=== PATIENT | female | born 1990 | race Caucasian/White ===

== ENCOUNTER 2019-09-09 08:23 | Emergency (ER) | payer OTHER, SELFPAY ==
[2019-09-09 08:34] VITALS: BP 116/65; PULSE 82; RESP 20; TEMP 36.4; O2SAT 100
--- NOTE | 2019-09-09 08:34 | ED.GENADULT ---
HPI - General Adult General Chief complaint: Upper Respiratory Infection Stated complaint: chest cold, sore throat Time Seen by Provider: 09/09/19 08:50 Source: patient Mode of arrival: ambulatory Limitations: no limitations History of Present Illness HPI narrative: 29-year-old female patient presents to the [facility] with complaints of cold symptoms that started yesterday. Patient started with a cough, coughing up some yellow sputum at times, sore throat, stuffy nose and a runny nose that started yesterday. Denies any fevers that she is aware of. Denies any ear pain. Patient states she only has chest pain when she coughs but denies any shortness of breath. Denies any abdominal pain, nausea, vomiting or diarrhea. Denies any or breast-feeding at this time. Patient states that she did get a flu shot this year. Patient states that she was recently diagnosed with cancer in July of this year and is supposed to be starting chemo next week. Patient states that since her symptoms started yesterday they advised her to get checked out make sure that she did not need any antibiotics or antivirals. Related Data Home Medications Medication Instructions Recorded Confirmed alprazolam 09/09/19 dexamethasone 09/09/19 levetiracetam PO 09/09/19 Allergies Allergy/AdvReac Type Severity Reaction Status Date / Time No Known Allergies Allergy Unknown Verified 09/09/19 08:35 Review of Systems Review of Systems: Narrative: CONSTITUTIONAL: Denies fever, chills, or sweats. EYES: Denies visual changes, redness, or discharge. ENT: Positive rhinorrhea, congestion, sore throat, denies otalgia. CARDIOVASCULAR: Denies chest pain, palpitations, or edema. RESPIRATORY: Positive cough, denies dyspnea. GASTROINTESTINAL: Denies abdominal pain, nausea, vomiting, or diarrhea. GENITOURINARY: Denies dysuria or hematuria. SKIN: Denies rash or itching. MUSCULOSKELETAL: Denies back pain, joint pain, or myalgia. NEUROLOGIC: Denies headache, numbness, or weakness. PSYCHIATRIC: Denies anxiety or depression. PMFSH Comments At the time of my signature I agree with nursing past medical history, surgical, social, and family history. There is no relevant family history pertinent to the presenting complaint. Exam Narrative: Exam Narrative: GENERAL: Well-appearing, well-nourished, and in no acute distress. HEAD: Normocephalic, atraumatic. No tenderness noted to frontal maxillary sinuses on palpation. EYES: PERRLA and EOMI. ENT: Nares with erythema and edema noted bilaterally, yellow rhinorrhea, denies epistaxis. Mucous membranes moist. Posterior pharynx with no erythema, tonsil enlargement, exudates or lesions present. Bilateral TMs are clear no erythema or foreign bodies in the canal. NECK: Supple. No lymphadenopathy CHEST: Clear to auscultation. No respiratory distress. HEART: Regular rate and rhythm. No murmur heard. Normal peripheral pulses. ABDOMEN: Soft, nontender, nondistended, normal active bowel sounds. EXTREMITIES: Normal range of motion. No edema. SKIN: Warm, dry, no rash. NEURO: No focal deficits. Alert and oriented x3. Course Reevaluation(s) Reevaluation #1: Notify patient that she is negative today for influenza, strep. Discussed with her this is most likely some type of viral syndrome. Discussed with her that she can continue treating herself symptomatically with [id number] medications. Discussed with her that we will send her swab off to the lab for further testing and if it does come back positive for strep in the next day or 2 weeks she should get a phone call from us putting her on antibiotics. Patient verbalized understanding denies any other questions or concerns at this time. Date: 09/09/19 Time: 08:57 Vital Signs Vital signs: Vital Signs Temperature 36.4 C L 09/09/19 08:34 Pulse Rate 82 09/09/19 08:34 Respiratory Rate 20 09/09/19 08:34 Blood Pressure 116/65 09/09/19 08:34 Pulse Oximetry 100
== END 2019-09-09 09:00 | disposition home or self-care (01) ==
PROVIDERS: Emergency Provider Nurse Practitioner Family
DX: J06.9 Acute upper respiratory infection, unspecified (principal); R05 Cough; C71.9 Malignant neoplasm of brain, unspecified
CPT/HCPCS: 87081; 87804; 87880; 99203; G0463

== ENCOUNTER 2023-09-03 08:35 | Emergency (ER) | payer BC, SELFPAY ==
--- NOTE | ~2023-09-03 | XR_ITS ---
EXAMINATION: XR chest 2V DATE: 09/03/2023 09:29 INDICATION: Cough. TECHNIQUE: Frontal and lateral views of the chest were obtained. COMPARISON: None. FINDINGS: There is no pneumonia, pleural effusion, or pneumothorax. The heart size is normal. IMPRESSION: 1. No acute cardiopulmonary disease. Reviewed, dictated and finalized at location A. [facility]
[2023-09-03 08:48] VITALS: BP 104/65; PULSE 100; RESP 18; TEMP 36.3; O2SAT 100
--- NOTE | 2023-09-03 09:18 | ED.GENADULT ---
HPI - General Adult General Chief complaint: Upper Respiratory Infection Stated complaint: Cough/Chest Congestion Source: patient Mode of arrival: ambulatory Limitations: no limitations History of Present Illness HPI narrative: Patient presents for evaluation of sick symptoms since yesterday. Symptoms include sinus congestion, thick yellow drainage from the nares, and productive cough of yellow sputum. No fever, chills, nausea, vomiting, diarrhea, shortness of breath or otalgia. She is not taking any medications to assist with her symptoms. No recent sick contacts to her knowledge. She has a history of brain cancer and has been receiving chemo and radiation. Related Data Home Medications Medication Instructions Recorded Confirmed levetiracetam 500 mg tablet 1,500 mg PO DAILY 09/09/19 fluticasone propionate 50 50 mcg intranasal DAILY 09/03/23 09/03/23 mcg/actuation nasal spray,suspension ivosidenib 250 mg tablet (Tibsovo) mg PO 09/03/23 potassium chloride 20 mEq/15 mL 20 meq PO DAILY 09/03/23 09/03/23 oral liquid Allergies Allergy/AdvReac Type Severity Reaction Status Date / Time No Known Allergies Allergy Unknown Verified 09/09/19 08:35 Review of Systems Review of Systems: CONSTITUTIONAL: Denies fever, chills, or sweats. EYES: Denies visual changes, redness, or discharge. ENT: Reports sinus congestion and thick yellow discharge from her nares. Denies sore throat and otalgia. CARDIOVASCULAR: Denies chest pain, palpitations, or edema. RESPIRATORY: Reports productive cough of yellow sputum. Denies SOB. GASTROINTESTINAL: Denies abdominal pain, nausea, vomiting, or diarrhea. GENITOURINARY: Denies dysuria or hematuria. SKIN: Denies rash or itching. MUSCULOSKELETAL: Denies back pain, joint pain, or myalgia. NEUROLOGIC: Denies headache, numbness, dizziness, or weakness. PSYCHIATRIC: Denies anxiety or depression. [facility] Past Medical History Medical History Brain cancer Surgical History Surgical History History of brain surgery Family History Family History Mother Family history non-contributory Social History Social History Living arrangements: with family Gender identity (if verbalized by the patient): Female Sexual Orientation (if Verbalized by the Patient): Straight or Heterosexual Spiritual care concerns: No Exam Narrative: GENERAL: Well-appearing, well-nourished, and in no acute distress. HEAD: Normocephalic, atraumatic. EYES: PERRLA and EOMI. ENT: Nares clear, no rhinorrhea or epistaxis. Mucous membranes moist. Oropharynx without tonsillar hypertrophy exudate or other lesions. Bilateral TMs pearly holguin nonbulging NECK: Supple. No adenopathy or masses. No carotid bruits or JVD CHEST: Clear to auscultation. No respiratory distress. No wheezes rales or rhonchi HEART: Regular rate and rhythm. No murmur heard. Normal peripheral pulses. ABDOMEN: Soft, nontender, nondistended, normal active bowel sounds. EXTREMITIES: Normal range of motion. No edema. SKIN: Warm, dry, no rash. NEURO: No focal deficits. Alert and oriented x3. PSYCH: Normal mood and affect. Course Course Emergency Course: This is a 33-year-old female who presented for evaluation of sick symptoms. COVID, influenza and CXR negative. She meets criteria for ABRS based upon characteristics of her nasal discharge. Will tx with augmentin. Mucinex DM should help with symptoms. Follow up with primary provider. Go to the ER for worsening symptoms. Pt in agreement with plan of care. Level of Care: Express Care Visit Vital Signs Vital signs: Vital Signs Temperature 36.3 C L 09/03/23 08:48 Pulse Rate 100 09/03/23 08:48 Respiratory Rate 18 09/03/23 08:48 Blood Pre
== END 2023-09-03 10:04 | disposition home or self-care (01) ==
PROVIDERS: Emergency Provider Nurse Practitioner; PCP Internal Medicine
DX: J32.9 Chronic sinusitis, unspecified (principal); Z20.822 Contact with and (suspected) exposure to COVID-19; C71.9 Malignant neoplasm of brain, unspecified
CPT/HCPCS: 71046; 87426; 87804; 99203; G0463